=== PATIENT | female | born 1990 | race Caucasian/White ===

== ENCOUNTER 2017-01-29 13:34 | Emergency (ER) | payer OTHER ==
[2017-01-29 13:38] VITALS: TEMP 98.1; BMI 30.9
--- NOTE | 2017-01-29 15:07 | PDOC ---
History of Present Illness - History of Present Illness Initial Comments: 01/29/17 16:40 The patient is a 26 year old female, 14 week , , with no significant past medical history, who presents to the emergency department with right lower quadrant pain since yesterday which intermittently radiates to her suprapubic region when getting up from supine position, as well as, when getting up from sitting. The patient states her pain lasts for about an hour at a time and can be alleviated with sitting still or with slow walking. The patient reports she has been taking iron pills and vitamins. She reports recently having a normal ultrasound at her [facility]. No associate dvaginal bleeding or discharge. She denies chest pain, shortness of breath, headache and dizziness. She denies fever, chills, nausea, vomit, diarrhea and constipation. She denies dysuria, frequency, urgency and hematuria. Allergies: NKDA Social history: denies toxic habits. [facility] - Dr. Georgiana Shine <Anita Gandhi - Last Filed: 01/29/17 16:40> <Waldo Becker - Last Filed: 01/29/17 17:40> - General Chief Complaint: Pain Stated Complaint: (14 WKS ) ABD PRESSURE Time Seen by Provider: 01/29/17 13:51 Past History <Anita Gandhi - Last Filed: 01/29/17 16:40> - Past Medical History Other medical history: denies - Reproductive History Is Patient Now?: Yes (#): 1 - Psycho/Social/Smoking Cessation Hx Suicidal Ideation: No Smoking History: Never smoked Information on smoking cessation initiated: No Hx Alcohol Use: No Drug/Substance Use Hx: No Substance Use Type: None <Waldo Becker - Last Filed: 01/29/17 17:40> - Past Medical History Allergies/Adverse Reactions: Allergies Allergy/AdvReac Type Severity Reaction Status Date / Time No Known Allergies Allergy Verified 01/29/17 13:38 Home Medications: Ambulatory Orders Vits #93/Iron Fum/FA [ Formula Tablet] 1 each PO DAILY Review of Systems - Review of Systems Able to Perform ROS?: Yes Comments:: 01/29/17 16:42 CONSTITUTIONAL: No reported: Fever, Chills, Diaphoresis, Generalized Weakness, Malaise, Loss of Appetite HEENT: No reported: Rhinorrhea, Nasal Congestion, Throat Pain, Throat Swelling, Difficulty Swallowing, Mouth Swelling, Ear Pain, Eye Pain, Visual Changes CARDIOVASCULAR: No reported: Chest Pain, Syncope, Palpitations, Irregular Heart Rate, Lightheadedness, Peripheral Edema RESPIRATORY: No reported: Cough, Shortness of Breath, SOB with Exertion, Orthopnea, Wheezing , Stridor, Hemoptysis GASTROINTESTINAL: (+) RLQ and suprapubic Abdominal pain, No reported:Abdominal Distension, Nausea , Vomiting, Diarrhea, Constipation, Melena, Hematochezia GENITOURINARY: No reported: Dysuria, Frequency, Urgency, Hesitancy, Flank Pain, Genital Pain MUSCULOSKELETAL: No reported: Myalgia, Arthralgia, Joint Swelling, Back pain, Neck Pain SKIN: No reported: Rash, Itching, Pallor HEMEATOLOGIC/IMMUNOLOGIC: No reported: Easy Bleeding, Easy Bruising, Lymphadenopathy, Frequent infections ENDOCRINE: No reported: Unexplained Weight Gain, Unexplained Weight Loss, Heat Intolerance , Cold Intolerance NEUROLOGIC: No reported: Headache, Focal Weakness, Paresthesias, Vertigo, Lightheadedness, Unsteady Gait, Seizure, Mental Status Changes, Incontinence PSYCHIATRIC: No reported: Anxiety, Depression <Anita Gandhi - Last Filed: 01/29/17 16:40> *Physical Exam - Vital Signs Last Vital Signs Temp Pulse Resp BP Pulse Ox 98.1 F 72 17 125/61 100 01/29/17 13:37 01/29/17 13:37 01/29/17 13:37 01/29/17 13:37 01/29/17 13:37 - Physical Exam Comments: 01/29/17 16:42 GENERAL: The patient is awake, alert, and fully oriented, Nontoxic - in no acute distress. HEAD: Normocephalic, atraumatic. EYES: extraocular movements intact, sclera anicteric, conjunctiva clear. ENT: Normal voice, Moist mucous membranes. NECK: Normal range of motion, supple LUNGS: Breath sounds equal, clear to auscultation bilaterally. No wheezes, no rhonchi, no rales. HEART: Regular rate and rhythm, without murmur, rub or gallop. ABDOMEN: . Soft, nontender, normoactive bowel sounds. No guarding, no rebound.No CVA tenderness EXTREMITIES: Normal range of motion, no edema. No clubbing or cyanosis. No cords, erythema, or tenderness. NEUROLOGICAL: No facial assymetry, Normal speech, PSYCH: Normal mood, normal affect. SKIN: Warm, Dry, normal turgor, <Anita Gandhi - Last Filed: 01/29/17 16:40> - Vital Signs Last Vital Signs Temp Pulse Resp BP Pulse Ox 98.1 F 72 17 125/61 100 01/29/17 13:37 01/29/17 13:37 01/29/17 13:37 01/29/17 13:37 01/29/17 13:37 <Waldo Becker - Last Filed: 01/29/17 17:40> ED Treatment Course - LABORATORY CBC & Chemistry Diagram: 01/29/17 14:55 - ADDITIONAL ORDERS Additional order review: Laboratory Results 01/29/17 01/29/17 01/29/17 14:55 14:55 14:55 Beta HCG, Quant 21980.1 Urine Color Yellow Urine Appearance Clear Urine pH 7.0 Ur Specific [place] 1.021 Urine Protein Negative Urine Glucose (UA) Negative Urine Ketones Negative Urine Blood Negative Urine Nitrite Negative Urine Bilirubin Negative Urine Urobilinogen Negative Ur Leukocyte Esterase Negative Blood Type O POSITIVE Antibody Screen Negative 01/29/17 14:55 RBC 4.51 MCV 88.5 MCHC 34.2 RDW 13.4 MPV 9.6 Neutrophils % 75.2 Lymphocytes % 17.3 Monocytes % 6.6 Eosinophils % 0.6 Basophils % 0.3 <Anita Gandhi - Last Filed: 01/29/17 16:40> - LABORATORY CBC & Chemistry Diagram: 01/29/17 14:55 - RADIOLOGY Radiology Studies Ordered: Category Date Time Status LIMITED US [US] Stat Ultrasound 01/29/17 14:35 Ordered <Waldo Becker - Last Filed: 01/29/17 17:40> Medical Decision Making - Medical Decision Making 01/29/17 15:04 26y F at 14 weeks, + care, on vitamins presents with intermittent lower abd pain RLQ/radiates to the pelvis - worse when she is sitting up or ambulating. denies anyfever/chills, urinary problems, vag bleeding /discharge, back pain, n/v. on exam pts abd is soft notnender, +gravid abdomen suspect round ligament pain will get US to evaluate status pt declines pain medications currently A portion of this note was documented by scribe services under my direction. I have reviewed the details of the note, within reason, and agree with the documentation with the following case summary and management plan written by me 01/29/17 17:37 labs reviewed US shows viable Intrauterine at 13w 3 days will dc the pt with Development Rep fu rturn precautions were discussed I discussed the physical exam findings, ancillary test results and final diagnoses with the patient. I answered all of the patient's questions. The patient was satisfied with the care received and felt comfortable with the discharge plan and treatment plan. The patient will call their primary care physician within 24 hours to arrange follow-up and will return to the Emergency Department with any new, persistent or worsening symptoms. <Waldo Becker - Last Filed: 01/29/17 17:40> *DC/Admit/Observation/Transfer - Attestations Scribe Attestion: 01/29/17 16:43 Documentation prepared by Anita Gandhi, acting as biomedical equipment specialist for Waldo Becker MD, MD <Anita Gandhi - Last Filed: 01/29/17 16:40> - Discharge Dispostion Admit: No <Waldo Becker - Last Filed: 01/29/17 17:40> Diagnosis at time of Disposition: Round ligament pain - Discharge Dispostion Disposition: HOME Condition at time of disposition: Improved - Referrals Referrals: Rosa Interiano [Primary Care Provider] - - Patient Instructions Printed Discharge Instructions: DI for Abdominal Pain -- Early Additional Instructions: Your pain is likely due to round ligament pain. If you have persistent, or worsening pain, vaginal bleeding, or otherconcerns, please return to the emergency department for reeavaluation. Please follow up with your doctor in 2-3 days for reassessment. Take tylenol if you hvae mild discomfort. Print Language: GREEK
[2017-01-29 15:11] LABS: URINE APPEARANCE CLEAR; URINE BILIRUBIN NEGATIVE (NEGATIVE); URINE BLOOD NEGATIVE (NEGATIVE); URINE COLOR YELLOW; URINE GLUCOSE (UA) NEGATIVE (NEGATIVE); URINE KETONE NEGATIVE (NEGATIVE); URINE LEUK ESTERASE NEGATIVE (NEGATIVE); URINE NITRITE NEGATIVE (NEGATIVE); URINE PROTEIN NEGATIVE (NEGATIVE); URINE UROBILINOGEN NEGATIVE E.U./dl (0.2-1.0)
[2017-01-29 15:27] LABS: BASOPHIL 0.3 % (0-2.0); EOSINOPHIL 0.6 % (0-4.5); MCH 30.3 pg (25.7-33.7); MCHC 34.2 g/dl (32.0-36.0); MEAN CELL VOLUME 88.5 fl (80-96); MEAN PLT VOLUME 9.6 fl (7.5-11.1); NEUTROPHILS 75.2 % (42.8-82.8); PLATELET COUNT 218 K/MM3 (134-434); RDW 13.4 % (11.6-15.6); WHITE BLOOD COUNT 11.2 K/mm3 (4.0-10.0)
[2017-01-29 17:55] VITALS: BP 118/64; PULSE 70
== END 2017-01-29 17:55 | disposition home or self-care (01) ==
LOC: JER 13:34
DX: O26.892 Other specified pregnancy related conditions, second trimester (principal); R10.31 Right lower quadrant pain; Z3A.14 14 weeks gestation of pregnancy
CPT/HCPCS: 36415; 76815-TC; 81003; 84702; 85025; 86850; 86900; 86901; 99281-25

== ENCOUNTER 2017-07-29 15:37 | Inpatient (IN) | payer OTHER ==
[2017-07-29 17:49] VITALS: BMI 42.2
[2017-07-29] MEDS ORDERED: ELECTROLYTE-148 SOLN 1,000 ML IV SCH (18:45)
[2017-07-29 19:29] LABS: BASOPHIL 0.1 % (0-2.0); EOSINOPHIL 0.2 % (0-4.5); MCH 30.2 pg (25.7-33.7); MCHC 34.2 g/dl (32.0-36.0); MEAN CELL VOLUME 88.3 fl (80-96); MEAN PLT VOLUME 10.1 fl (7.5-11.1); NEUTROPHILS 84.5 % (42.8-82.8); PLATELET COUNT 237 K/MM3 (134-434); RDW 13.1 % (11.6-15.6); WHITE BLOOD COUNT 16.7 K/mm3 (4.0-10.0)
[2017-07-29 19:45] LABS: ACTIVATED PTT 31.5 SECONDS (26.9-34.4)
[2017-07-29 20:15] LABS: ANION GAP 10 (8-16); CO2 24 mmol/L (21-32); CREATININE 0.5 mg/dL (0.55-1.02); GLUCOSE,RANDOM 64 mg/dL (74-106)
--- NOTE | 2017-07-29 21:52 | HP ---
Past Medical History - Admission Chief Complaint: Labor pain History of Present Illness: 26 yo @ 40 weeks gestation, EDC 07/28/17, presents c/o labor pain. Upon admission she was 3cm dilated with intact membrane. History Source: Patient Limitations to Obtaining History: No Limitations - Past Medical History ...: 1 ...Para: 0 ...Term: 0 ...: 0 ...Spon : 0 ...Induced : 0 ...LMP: 10/13/16 ... Weeks Gestation by Dates: 41.2 ...EDC by Dates: 07/20/17 ...EDC by Sono: 07/28/17 - Past Surgical History Past Surgical History: Yes: None Hx Myomectomy: No Hx Transabdominal Cerclage: No - Smoking History Smoking history: Never smoked Have you smoked in the past 12 months: No - Alcohol/Substance Use Hx Alcohol Use: No - Social History Usual Living Arrangement: Yes: With Significant Other History of Recent Travel: No Home Medications - Allergies Allergies/Adverse Reactions: Allergies Allergy/AdvReac Type Severity Reaction Status Date / Time No Known Allergies Allergy Verified 01/29/17 13:38 - Home Medications Home Medications: Ambulatory Orders Vits #93/Iron Fum/FA [ Formula Tablet] 1 each PO DAILY Ferrous Sulfate [Feosol] 1 mg PO DAILY 07/29/17 Family Disease History - Family Disease History Family History: Unremarkable Review of Systems - Review of Systems Constitutional: reports: No Symptoms Eyes: reports: No Symptoms HENT: reports: No Symptoms Neck: reports: No Symptoms Cardiovascular: reports: No Symptoms Respiratory: reports: No Symptoms Gastrointestinal: reports: No Symptoms Genitourinary: reports: Pain Breasts: reports: No Symptoms Reported Musculoskeletal: reports: No Symptoms Integumentary: reports: No Symptoms Neurological: reports: No Symptoms Endocrine: reports: No Symptoms Hematology/Lymphatic: reports: No Symptoms Psychiatric: reports: No Symptoms Pain Intensity: 5 Physical Exam - Maternity Vital Signs: Vital Signs Temperature 98.0 F 07/29/17 18:00 Pulse Rate 92 H 07/29/17 18:00 Respiratory Rate 18 07/29/17 18:00 Blood Pressure 122/68 07/29/17 18:00 O2 Sat by Pulse Oximetry (%) Constitutional: Yes: Well Nourished Eyes: Yes: Conjunctiva Clear HENT: Yes: Atraumatic Neck: Yes: Supple, Trachea Midline Cardiovascular: Yes: Regular Rate and Rhythm Lungs: Clear to auscultation Breast(s): Yes: WNL - Abdominal Exam/OB Number of Fetuses: Single Presentation: Vertex - Vaginal Exam/OB Vaginal Bleediing: No Dilatation (cm): 3 Effacement (%): 90 Amniotic Membrane Status: Intact Presentation: Vertex/Position - Physical Exam ...Motor Strength: WNL Psychiatric: Yes: Alert, Oriented - Labs Lab Results: CBC, BMP 07/29/17 18:00 07/29/17 18:00 Problem List - Problems (1) Status post normal vaginal delivery Code(s): [id number] - Assessment/Plan Active labor Analgesia as needed Anticipate normal vaginal delivery
[2017-07-29] MEDS ORDERED: DEXTROSE 5%-LACTATED RINGERS 1,000 ML IV SCH (22:00)
[2017-07-29] MEDS ORDERED: BENZOCAINE 28 GM HEMORRHOIDAL OINTMENT TP PRN (22:35)
[2017-07-29] MEDS ORDERED: BENZOCAINE 20% 57 GM BOTTLE TP PRN (22:35)
[2017-07-29] MEDS ORDERED: METHYLERGONOVINE MALEATE 0.2 MG/1 ML AMP IM PRN (22:35)
[2017-07-29] MEDS ORDERED: WITCH HAZEL 50% (TUCKS) 40 PAD/JAR PAD TP PRN (22:35)
[2017-07-29] MEDS ORDERED: ACETAMINOPHEN 325 MG TABLET (FP) PO PRN (22:35)
[2017-07-29] MEDS ORDERED: IBUPROFEN 600 MG TABLET (FP) PO PRN (22:35)
[2017-07-29] MEDS ORDERED: BISACODYL 10 MG SUPP.RECT RC PRN (22:35)
--- NOTE | 2017-07-29 22:35 | PN ---
Delivery - Delivery Vaginal Delivery: Spontaneous Type of Anesthesia: Local Episiotomy/Laceration: Midline EBL (cc): 250 Delivery, Single - Feeding Plan Initial Plan: Exclusive throughout hospitalization Remarks - Remarks Remarks: Normal spontaneous vaginal delivery of a live infant girl over midline episiotomy. Nose / Oropharynx suctioned @ perineum. Cord clamped and cut. Placenta expelled spontaneously intact. Midline episiotomy repaired with 2.0 Chromic and 2.0 Biosyn.
[2017-07-29] MEDS ORDERED: D5W-LR W/ 20 UNITS OXYTOCIN 1,000 ML IV SCH (22:45)
[2017-07-30] MEDS: FERROUS SO4 325 MG TABLET (FP) PO SCH ×3 (08:19→17:45)
[2017-07-30 09:11] LABS: BASOPHIL 0.6 % (0-2.0); EOSINOPHIL 0.2 % (0-4.5); MCHC 34.1 g/dl (32.0-36.0); MEAN PLT VOLUME 9.3 fl (7.5-11.1); NEUTROPHILS 84.5 % (42.8-82.8); PLATELET COUNT 213 K/MM3 (134-434); RDW 13.1 % (11.6-15.6); WHITE BLOOD COUNT 19.8 K/mm3 (4.0-10.0)
[2017-07-30] MEDS: PRENATAL VITAMINS W/ FOLIC ACID TABLET (FP) PO SCH (09:33)
--- NOTE | 2017-07-30 09:33 | PN ---
Post Progress Note - Subjective Subjective: 26 yo Para 1 status post normal vaginal delivery, seen and evaluated. Doing well. Post Day: 1 Type of Delivery: Vital Signs: Vital Signs Temperature 98.6 F 07/30/17 06:00 Pulse Rate 89 07/30/17 06:00 Respiratory Rate 18 07/30/17 06:00 Blood Pressure 102/56 07/30/17 06:00 O2 Sat by Pulse Oximetry (%) 100 07/29/17 23:30 Breast Exam: Yes: Soft Uterus: Yes: Fundus Firm Abdomen/GI: Yes: Abdomen soft, Tolerating PO Lochia: Yes: Rubra Lochia, amount: Moderate Extremities: Yes: Calves non-tender Perineum: Yes: Intact Activity: Ambulating - Labs Labs: CBC WBC 19.8 K/mm3 (4.0-10.0) H 07/30/17 08:45 RBC 4.57 M/mm3 (3.60-5.2) 07/30/17 08:45 Hgb 13.7 GM/dL (10.7-15.3) 07/30/17 08:45 Hct 40.2 % (32.4-45.2) 07/30/17 08:45 MCV 88.0 fl (80-96) 07/30/17 08:45 MCH 30.0 pg (25.7-33.7) 07/30/17 08:45 MCHC 34.1 g/dl (32.0-36.0) 07/30/17 08:45 RDW 13.1 % (11.6-15.6) 07/30/17 08:45 Plt Count 213 K/MM3 (134-434) 07/30/17 08:45 MPV 9.3 fl (7.5-11.1) 07/30/17 08:45 Neutrophils % 84.5 % (42.8-82.8) H 07/30/17 08:45 Lymphocytes % 9.1 % (8-40) 07/30/17 08:45 Monocytes % 5.6 % (3.8-10.2) 07/30/17 08:45 Eosinophils % 0.2 % (0-4.5) 07/30/17 08:45 Basophils % 0.6 % (0-2.0) D 07/30/17 08:45 Problem List - Problems (1) Status post normal vaginal delivery Code(s): [id number] - Assessment/Plan Status post vaginal delivery Stable Continue routine care
--- NOTE | 2017-07-30 09:36 | DS ---
Physical Exam-REBAR FABRICATOR Vital Signs: Vital Signs Temperature 98.6 F 07/30/17 06:00 Pulse Rate 89 07/30/17 06:00 Respiratory Rate 18 07/30/17 06:00 Blood Pressure 102/56 07/30/17 06:00 O2 Sat by Pulse Oximetry (%) 100 07/29/17 23:30 Constitutional: Yes: Well Nourished Eyes: Yes: Conjunctiva Clear HENT: Yes: Atraumatic Neck: Yes: Supple Cardiovascular: Yes: Regular Rate and Rhythm Respiratory: Yes: Regular, CTA Bilaterally Gastrointestinal: Yes: Normal Bowel Sounds ...Rectal Exam: Yes: WNL External Genitalia: Yes: Normal Vaginal Exam: Yes: Discharge (Bloody) Cervix: Yes: Normal Uterus: Yes: Firm ....Post : Yes: Uterus firm, Moderate lochia serosa Breast(s): Yes: WNL Extremities: Yes: WNL Neurological: Yes: Alert, Oriented ...Motor Strength: WNL Psychiatric: Yes: Alert, Oriented Labs: CBC, BMP 07/30/17 08:45 07/29/17 18:00 Delivery - Delivery Vaginal Delivery: Spontaneous Type of Anesthesia: Local Episiotomy/Laceration: Midline EBL (cc): 250 Delivery, Single - Stages of Labor Date 1st Stage Initiatied: 07/29/17 Time 1st Stage Initiated: 15:00 Date 2nd Stage Initiated: 07/29/17 Time 2nd Stage Initiated: 21:50 Date of Delivery: 07/29/17 Time of Delivery: 21:59 Time Placenta Delivered: 22:05 - 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 Gender: Male Weight: 6 lb 6 oz Position: Left, OA Total Hours ROM (Hrs/Mins): 50min - 1 Minute Total Score: 9 5 Minutes Total Score: 9 - Feeding Plan Initial Plan: Exclusive throughout hospitalization Discharge Summary Reason For Visit: Labor Current Active Problems Status post normal vaginal delivery (Acute) Procedures: Principal: Normal vaginal delivery Hospital Course: Routine care Condition: Good - Instructions Diet, Activity, Other Instructions: Regular diet No douching, no sexual intercourse x 6 weeks F/U in clinic in 6 weeks Disposition: HOME - Home Medications Comprehensive Discharge Medication List: Ambulatory Orders Vits #93/Iron Fum/FA [ Formula Tablet] 1 each PO DAILY Ferrous Sulfate [Feosol] 1 mg PO DAILY 07/29/17
[2017-07-30] MEDS ORDERED: SENNOSIDES/DOCUSATE COMBO (SENNA PLUS) TABLET (UD) PO PRN (22:00)
[2017-07-30 22:27] VITALS: PULSE 94
[2017-07-31] MEDS: FERROUS SO4 325 MG TABLET (FP) PO SCH ×2 (08:00→12:00)
--- NOTE | 2017-07-31 08:42 | PN ---
Progress Note (short form) - Note Progress Note: pd 2 no c/o voids ok, no excess vaginal bleeding CBC, BMP 07/30/17 08:45 07/29/17 18:00 uterus firm, non tender , no cva lochia mild , no excess vaginal bleeding impression leukocytosis , asymptomatic plan repeat cbc, revaluate, if ok,d/c home, rtc 4 weeks
[2017-07-31] MEDS: PRENATAL VITAMINS W/ FOLIC ACID TABLET (FP) PO SCH (09:09)
[2017-07-31 09:38] LABS: BASOPHIL 0.2 % (0-2.0); EOSINOPHIL 0.6 % (0-4.5); MCH 29.9 pg (25.7-33.7); MCHC 33.6 g/dl (32.0-36.0); MEAN PLT VOLUME 9.2 fl (7.5-11.1); NEUTROPHILS 78.6 % (42.8-82.8); PLATELET COUNT 219 K/MM3 (134-434); RDW 13.2 % (11.6-15.6); WHITE BLOOD COUNT 12.8 K/mm3 (4.0-10.0)
[2017-07-31 10:39] VITALS: BP 116/64; TEMP 98.1
== END 2017-07-31 12:15 | disposition home or self-care (01) | DRG 560 ==
LOC: JDEL 15:37 → JLDR 16:30 → J3W 07-30 00:30
PROVIDERS: ADMIT Obstetrics & Gynecology; ATTEND Obstetrics & Gynecology
PROC: 10E0XZZ Delivery of Products of Conception, External Approach (ICD-10-PCS; principal; 2017-07-29)
PROC: 0W8NXZZ Division of Female Perineum, External Approach (ICD-10-PCS; 2017-07-29)
DX: O80 Encounter for full-term uncomplicated delivery (principal); Z3A.40 40 weeks gestation of pregnancy; Z37.0 Single live birth
CPT/HCPCS: 36415; 59409; 80048; 85025; 85610; 85730; 86593; 86850; 86900; 86901

== ENCOUNTER 2018-09-26 18:11 | Emergency (ER) | payer OTHER ==
[2018-09-26 18:28] VITALS: BP 139/85; PULSE 98; TEMP 98.5; BMI 43.7
--- NOTE | 2018-09-26 18:33 | PDOC ---
History of Present Illness - General Chief Complaint: Pain Stated Complaint: BACK PAIN Time Seen by Provider: 09/26/18 18:31 History Source: Patient Exam Limitations: No Limitations - History of Present Illness Initial Comments: 09/26/18 18:49 worsening low back pain 2 weeks. States couple weeks ago was doing some lifting of child d in the carseat and felt a twinging to her low back. States rested and pain resolved. since that time has had progressive worsening of back pain where today she moved and has been unable to stand since that time. has never had an accident or known injury, no fevers, no ms with bowel or bladders, . has not taken any medication for relief of pain. Occurred: reports: last week Severity: reports: moderate Pain Location: reports: back Modifying Factors: improves with: None Associated Symptoms (Fall): denies symptoms Past History - Travel Traveled outside of the country in the last 30 days: No Close contact w/someone who was outside of country & ill: No - Past Medical History Allergies/Adverse Reactions: Allergies Allergy/AdvReac Type Severity Reaction Status Date / Time No Known Allergies Allergy Verified 09/26/18 18:28 Home Medications: Ambulatory Orders Cyclobenzaprine HCl 10 mg PO Q8H PRN #14 tablet 09/26/18 Naproxen [Naprosyn -] 500 mg PO BID #30 tablet 09/26/18 Asthma: No Cancer: No Cardiac Disorders: No COPD: No Diabetes: No HTN: No Seizures: No Thyroid Disease: No - Reproductive History (#): 1 - Suicide/Smoking/Psychosocial Hx Smoking History: Never smoked Have you smoked in the past 12 months: No Hx Alcohol Use: No Drug/Substance Use Hx: No Substance Use Type: None Hx Substance Use Treatment: No Review of Systems - Review of Systems Able to Perform ROS?: Yes Is the patient limited [place] proficient: Yes Constitutional: Yes: Symptoms Reported *Physical Exam - Vital Signs Last Vital Signs Temp Pulse Resp BP Pulse Ox 98.5 F 98 H 18 139/85 99 09/26/18 18:25 09/26/18 18:25 09/26/18 18:25 09/26/18 18:25 09/26/18 18:25 - Physical Exam General Appearance: Yes: Nourished, Appropriately Dressed, Apparent Distress HEENT: positive: ATIF, Normal ENT Inspection, TMs Normal, Pharynx Normal Neck: positive: Tender, Supple Respiratory/Chest: positive: Lungs Clear, Normal Breath Sounds Extremity: positive: Normal Capillary Refill, Normal Inspection. negative: Normal Range of Motion (limited range of motion secondary to spasm of the low paravrtebral spinous muscles to lumbar spinous area. Range of motion is limited secondary to this spasm. Has no spine tenderness crepitus or step-offs. Is ambulatory but walks with a stoop) Integumentary: positive: Normal Color, Dry, Warm, Pale Neurologic: positive: acrobatic dancer II-XII NML intact, Fully Oriented, Alert, Normal Mood/ Affect, Normal Response, Motor Strength 5 Progress Note - Progress Note Progress Note: Low back strain, we'll treat with NSAIDs and cyclobenzaprine *DC/Admit/Observation/Transfer Diagnosis at time of Disposition: Spasm of muscle of lower back - Discharge Dispostion Disposition: HOME Condition at time of disposition: Stable Decision to Admit order: No - Referrals Referrals: Isaiah Solares MD [Staff Physician] - - Patient Instructions Printed Discharge Instructions: DI for Low Back Pain Additional Instructions: Rest, no heavy lifting or exercise until pain is resolved Hot soaks to neck and low back as often as possible/hot showers or Jacuzzis No massage or therapy until spasm is gone Continue Naprosyn 500 mg tablet, 1 tablet every 12 hours for the next 3 days then as needed for pain and swelling Cyclobenzaprine 1-10mg every 8 hours as needed for spasm If not significant improvement within 24 hours with medication and rest regime, followup with private physician for change in medications and /or therapy. - Post Discharge Activity Forms/Work/School Notes: Back to Work
[2018-09-26] MEDS ORDERED: KETOROLAC TROMETHAMINE 60 MG/2 ML VIAL IM ONE (18:49)
[2018-09-26] MEDS ORDERED: KETOROLAC TROMETHAMINE 60 MG/2 ML VIAL ONE (18:53)
== END 2018-09-26 19:29 | disposition home or self-care (01) ==
LOC: JERFT 18:11
PROC: 3E0233Z Introduction of Anti-inflammatory into Muscle, Percutaneous Approach (ICD-10-PCS; principal; 2018-09-26)
DX: S39.012A Strain of muscle, fascia and tendon of lower back, initial encounter (principal); M62.830 Muscle spasm of back; X50.9XXA Other and unspecified overexertion or strenuous movements or postures, initial encounter; Y93.F2 Activity, caregiving, lifting; Y92.89 Other specified places as the place of occurrence of the external cause; Y99.8 Other external cause status
CPT/HCPCS: 96372; 99281-25

== ENCOUNTER 2021-01-28 21:39 | Emergency (ER) | payer OTHER ==
[2021-01-28 21:48] VITALS: BP 127/80; PULSE 89; TEMP 98.2; BMI 39.4
[2021-01-28] MEDS ORDERED: IBUPROFEN 600 MG TABLET (FP) PO ONE ×2 (23:32→23:38)
== END 2021-01-29 00:15 | disposition home or self-care (01) ==
LOC: JER 21:39
DX: M72.2 Plantar fascial fibromatosis (principal)
CPT/HCPCS: 73630-TC-RT-FY; 99283-25